=== PATIENT | male | born 1945 | race Caucasian/White ===

== ENCOUNTER 2017-05-27 05:29 | Inpatient (IN) ==
[2017-05-27] MEDS ORDERED: NOZIN NASAL SWAB NAS ONE ×2 (06:00→10:14)
[2017-05-27] MEDS ORDERED: CEFAZOLIN 1 G INJECTION IVP ONE (06:00)
[2017-05-27] MEDS ORDERED: FAMOTIDINE PB 20 MG/50 ML BAG IV ONE (06:00)
[2017-05-27] MEDS ORDERED: LIDOCAINE 1% (10mg/ml) 2mL INJ PF SDV ID ONE (06:00)
[2017-05-27] MEDS ORDERED: METOCLOPRAMIDE 10mg/2ml INJECTION IVP ONE (06:00)
[2017-05-27] MEDS ORDERED: ONDANSETRON 4 MG/2 ML INJECTION IVP ONE (06:00)
[2017-05-27] MEDS ORDERED: ACETAMINOPHEN 500 MG TABLET PO ONE (06:00)
[2017-05-27] MEDS ORDERED: MELOXICAM 15 MG TABLET PO ONE (06:00)
[2017-05-27] MEDS ORDERED: DEXAMETHASONE 4 MG/ML INJECTION IVP ONE (06:00)
[2017-05-27] MEDS: LR 1,000 ML IV SCH ×2 (06:12→07:55)
[2017-05-27] MEDS ORDERED: VANCOMYCIN 1,000 MG INJECTION ONE (06:27)
[2017-05-27] MEDS ORDERED: MIDAZOLAM 2mg/2ml INJECTION ONE (07:13)
[2017-05-27] MEDS ORDERED: PROPOFOL 500 MG/50 ML VIAL IV ONE (07:14)
--- NOTE | 2017-05-27 07:15 | History & Physical Update ---
- History and Physical Update Date: 05/27/17 Update: I evaluated this patient and found no changes in the history and clinical exam findings. The treatment plan and recommendations are also unchanged from the previous documentation.
[2017-05-27] MEDS ORDERED: KETOROLAC OPSITE ONE (08:00)
[2017-05-27] MEDS ORDERED: BUPIVACAINE 0.25% OPSITE ONE (08:00)
[2017-05-27] MEDS ORDERED: NS OPSITE ONE (08:00)
[2017-05-27] MEDS ORDERED: EPINEPHRINE OPSITE ONE (08:00)
[2017-05-27] MEDS ORDERED: EPHEDRINE 50mg/ml INJECTION ONE (08:08)
--- NOTE | 2017-05-27 08:37 | Anesthesia Preoperative Report ---
Anesthesia Preoperative Record - Date and Time Date: 05/27/17 Preoperative Diagnosis: Rt MARYSE (RA) M16.11 Proposed Procedure: right robotic total hip arthroplasty NPO Since Date: 05/26/17 NPO Since Time: 23:00 Allergies/Adverse Reactions: Allergies Allergy/AdvReac Type Severity Reaction Status Date / Time Sulfa (Sulfonamide Allergy Unknown RASH Verified 05/27/17 05:55 Antibiotics) morphine AdvReac Unknown SEVERE Verified 05/27/17 05:55 DROP BLOOD PRESSURE - Vital Signs Vital Signs: Temperature 98.5 F 05/27/17 05:42 Pulse Rate 62 05/27/17 06:01 Respiratory Rate 18 05/27/17 05:42 Blood Pressure 136/81 05/27/17 05:42 Pulse Oximetry 94 05/27/17 05:42 Oxygen Delivery Method Room Air Height and Weight: Height 5 ft 9 in Weight 86.8 kg Body Mass Index 28.2 - Medications Inpatient Medications: Current Medications Lactated Ringer's (Lactated Ringers) 1,000 mls @ 50 mls/hr IV .Q20H SHAHAB Last Admin: 05/27/17 06:12 Dose: 50 mls/hr Tranexamic Acid 1,000 mg/ (Sodium Chloride) 200 mls @ 200 mls/hr IV O ONE Stop: 05/27/17 09:13 Miscellaneous Medication (Tranexamic 1gm/Ns 100 Irr Mix) 100 ml IR O ONE Stop: 05/27/17 10:59 Last Admin: 05/27/17 07:53 Dose: 100 ml Sodium Chloride (Iv Flush) 10 - 80 ml IVF PRN PRN PRN Reason: [place] Home Medications: Home Medications Medication Instructions Recorded Confirmed Type aspirin 81 mg tablet,delayed 81 mg PO DAILY tab 04/21/17 05/27/17 History release Aleve (Naproxen) 220 mg capsule 440 mg PO QAM #0 cap 05/14/17 05/27/17 History Aleve PM (Naproxen 220 1 tab PO HS 05/14/17 05/27/17 History mg-diphenhydramine 25 mg tablet) fish oil-dha-epa 1,200 mg-144 1 cap PO Q2D #0 cap 05/14/17 05/27/17 History mg-216 mg capsule cqsjmrdx-tne-YM 200 mcg-vit K 15 1 tab PO DAILY tab 05/14/17 05/27/17 History mcg-lycope 150 ttg-npgijf-yhdj tablet jgiuuopy-ozf-kvfen acid 300 1 tab PO QAM tab 05/14/17 05/27/17 History mcg-lycopene 600 mcg-lutein 300 mcg tablet Acetaminophen [Tylenol] 1,000 mg PO Q4HPRN PRN 05/27/17 05/27/17 History Docusate Sodium [Colace] 100 mg PO PRN PRN 05/27/17 05/27/17 History Is Patient on Beta Hailey?: No - Medical History Respiratory: DENIES: Asthma, Chronic Obstructive Pulmonary Disease (COPD) Cardiovascular: DENIES: Angina, Coronary Artery Disease, Heart Murmur, Hypertension, Myocardial Infarction Gastrointestional: DENIES: Gastroesophageal Reflux Disease Renal/Endocrine: DENIES: Diabetes Mellitus Type 2 Other History: DENIES: Anesthesia Reactions - Surgical History HEENT Surgeries: Reports: Nose Surgery (rhinoplasty-2013) Musculoskeletal Surgery/Tx: Reports: Orthopedic Surgery (ORIF Rt arm), Total Knee Replacement (left and right) Anesthesia Reactions: None Hx Family Anesthesia Reaction: No History of Motion Sickness: No - Social History Smoking Status: Never smoker Hx Chewing Tobacco Use: No Second Hand Exposure: No Substance Use Type: does not use - Physical Exam Respiratory Exam: Present: lungs clear Cardiovascular Exam: Present: regular rate and rhythm - Airway Assessment Mallampati Score: II TMD: 3 Fingerbreadths Neck Extension: good Overall Assessment: no airway concerns - ASA ASA Score: 2 - Plan Anesthesia: General TIVA, Neuroaxial Regional/Trunk Block: Spinal - Discussion Discussion: Discussed risks/options/alternatives of anesthesia and questions answered. Patient consents. Nursing pain assessment noted. Present for Discussion: spouse Attestation Statement: Prior to the delivery of any anesthetic medication, I examined the patient, developed the plan, obtained the patient's consent and discussed the risk and benefits of the procedure with the patient/guardian. - Additional Information Seen by Anesthesia: Yes
[2017-05-27] MEDS ORDERED: ONDANSETRON 4 MG/2 ML INJECTION IVP PRN ×2 (08:40→10:14)
[2017-05-27] MEDS ORDERED: HYDROMORPHONE 2 MG/ML INJECTION IVP PRN (08:40)
[2017-05-27] MEDS ORDERED: VANCOMYCIN 1,000 MG INJECTION IAR ONE (09:01)
[2017-05-27] MEDS: TRANEXAMIC ACID 1,000 MG in NS 100 ML IV ONE ×2 (09:03→16:15)
[2017-05-27] MEDS ORDERED: PROPOFOL 20 ML ONE (09:06)
--- NOTE | 2017-05-27 09:10 | Operative Note ---
- Procedure Side: right Preoperative Diagnosis: hip primary DJD Postoperative Diagnosis: Same as preoperative diagnosis. Operation: total hip arthroplasty Surgeon: Jovon Wilcox MD Supervisor Safety Deposit: Renny Taylor Complications: None. Regional/Trunk Block: Spinal Estimated Blood Loss: See Anesthesia Record. Fluids: Please see Anesthesia Record. Description of Procedure: Mr. Daniels and his right hip were identified and marked in the preoperative holding area. He was brought back to the operating suite and spinal anesthetic was administered. He was then placed in a lateral decubitus position with his right hip up. The right lower extremity was prepped and draped in my normal sterile fashion. Timeout was performed. The [employer] robotic arm was used to assist with the surgery. A direct superior approach was utilized. An approximately 10 cm incision was made in the skin and dissection carried down to the muscle fascia which was then split in line with skin incision. A checkpoint was placed in the greater trochanter. The short external rotators were identified and tagged and detached. A capsulotomy was performed and the hip dislocated. A femoral neck osteotomy was performed at the pre-templated level measuring down from the femoral head. The head was removed and acetabulum exposed. Labrum was removed. A checkpoint was placed superior to the acetabulum. The acetabulum was then registered with the robot. The robotic arm was then used to ream with a 61 reamer. The robot then was again used to place a 62 Trident cup in 40 of tilt and 25 of anteversion. A liner was then placed. The proximal femur was exposed and prepared with a cookie cutter followed by reaming and broaching to a size 9. We trialed with a +2.5 head. After thorough irrigation a final Accolade 2 size 9 stem with 127 neck was placed. Leg length and offset were checked with the robot and were good in master pre-operative plan. A final +5 head was placed and the hip reduced. Betadine solution was used to irrigate throughout the case. It was followed by normal saline irrigation. Joint cocktail was injected throughout soft tissue. The capsulotomy was repaired with Ethibond. Short external rotators were also repaired with Ethibond. 1 g of vancomycin powder was placed into the wound. The muscle fascia was then repaired with #1 Vicryl. I then left my system to close the subcutaneous tissue with 2-0 Vicryl followed by running 4-0 Monocryl skin followed by Dermabond and a sterile dressing. The patient with any placed back into supine position and taken to recovery room in the care of anesthesia.
[2017-05-27] MEDS ORDERED: DiphenhydrAMINE 50 MG/ML INJECTION IVP PRN (10:14)
[2017-05-27] MEDS ORDERED: NAPROXEN 220 MG TABLET PO PRN (10:14)
[2017-05-27] MEDS ORDERED: LORazepam 1 MG TABLET PO PRN (10:14)
[2017-05-27] MEDS ORDERED: DiphenhydrAMINE 25 MG CAPSULE PO PRN (10:14)
[2017-05-27] MEDS: NS 1,000 ML IV SCH ×2 (10:16→23:25)
[2017-05-27 10:21] VITALS: BMI 28.6
[2017-05-27] MEDS: ACETAMINOPHEN 325 MG TABLET PO SCH ×4 (10:57→20:23)
[2017-05-27] MEDS ORDERED: SALINE FLUSH 10ml SYRINGE IVF PRN (10:58)
[2017-05-27] MEDS ORDERED: TRANEXAMIC ACID 1gm/NS 100ml IRR MIX IR ONE (10:58)
--- NOTE | 2017-05-27 11:01 | XRay Report ---
Indication: postoperative image PROCEDURE: XR pelvis w/ 1 view RT hip: Encounter: Initial Comparison: April 21, 2017 Findings: Postoperative changes of right total hip replacement are seen. There is expected postoperative subcutaneous gas. No evidence of hardware failure or acute fracture. No retained radiopaque surgical instruments or sponges seen. Severe osteoarthritis in the left hip is again noted with a gpxf-ku-cewy appearance. Impression: New right total hip prosthesis without evidence of immediate complication. .
[2017-05-27] MEDS: DOCUSATE SODIUM 100 MG CAPSULE PO SCH ×2 (11:04→20:23)
[2017-05-27] MEDS: POLYETHYL GLYCOL 3350 17gm PACKET PO SCH (11:05)
[2017-05-27] MEDS: ASPIRIN *EC* 325 MG TABLET PO SCH ×2 (12:15→20:23)
[2017-05-27] MEDS: NOZIN NASAL SWAB NAS SCH ×3 (14:46→21:51)
[2017-05-27] MEDS: CEFAZOLIN 2 G in NS 100 ML IV SCH (14:47)
[2017-05-27] MEDS ORDERED: SENNOSIDES 8.6 MG TABLET PO SCH (21:00)
[2017-05-28] MEDS: Oxycodone *IR* 5 MG TABLET PO PRN ×2 (02:31→09:58)
[2017-05-28] MEDS: CEFAZOLIN 2 G in NS 100 ML IV SCH (03:53)
[2017-05-28] MEDS: NOZIN NASAL SWAB NAS SCH ×2 (05:55→13:37)
[2017-05-28] MEDS ORDERED: SENNOSIDES 8.6 MG TABLET PO PRN (07:16)
[2017-05-28 08:15] VITALS: RESP 16
[2017-05-28] MEDS: POLYETHYL GLYCOL 3350 17gm PACKET PO SCH (08:48)
[2017-05-28] MEDS: DOCUSATE SODIUM 100 MG CAPSULE PO SCH (08:48)
[2017-05-28] MEDS: ASPIRIN *EC* 325 MG TABLET PO SCH (08:48)
[2017-05-28] MEDS: ACETAMINOPHEN 325 MG TABLET PO SCH ×2 (08:49→13:37)
--- NOTE | 2017-05-28 12:06 | Orthopedic Progress Note ---
Date: Doing well without concerns. Orthopedic Objective Vital signs: Temperature 97.2 F 05/28/17 08:00 Pulse Rate 62 05/28/17 08:00 Respiratory Rate 16 05/28/17 08:00 Blood Pressure 119/69 05/28/17 08:00 Pulse Oximetry 94 05/28/17 08:00 Oxygen Delivery Method Room Air Height and Weight: Height 5 ft 9 in Weight 87.9 kg Body Mass Index 28.6 - Constitutional General Appearance: Present: no acute distress - Respiratory Exam Present: non-labored - Cardiovascular Exam Present: pedal pulses intact Capillary Refill: < 2-3 Seconds - Abdominal Exam Present: soft - Extremities Exam Absent: calf tenderness - Neurological Exam Present: no deficits. Absent: intact to light touch - Psychiatric Exam Present: alert - Labs Result Diagrams: 05/28/17 04:19 05/28/17 04:19 Abnormal lab results 05/28/17 05/28/17 Range/Units 04:19 04:19 WBC 12.2 H (4.5-11.0) T/MM3 RBC 4.35 L (4.50-5.90) M/MM3 Hgb 13.2 L (13.5-17.5) GM/DL Hct 39.8 L (41-53) % Chloride 108 H (98-107) MEQ/L H & H 05/28/17 Range/Units 04:19 Hgb 13.2 L (13.5-17.5) GM/DL Hct 39.8 L (41-53) % Orthopedic Assessment and Plan (1) Primary osteoarthritis of right hip Status: Resolved Assessment and Plan: Doing well. Continue current treatment. Anticipate discharge today. Hospital Course Summary Disclaimer: The visit summary below is not to be considered part of the above Progress Note.
[2017-05-28 12:12] VITALS: BP 122/72; PULSE 64; TEMP 96.9; O2SAT 93
--- NOTE | 2017-05-28 12:54 | Discharge Instructions ---
Discharge Plan - Med Rec/Dispo Referrals/Follow Up: Rupesh Wilcox MD [Physician] - 06/18/17 1:15 pm Vikas Instructions: [facility] Postop Instructions Additional Instructions: ADVANCED THERAPY AT THE [facility] ON 05/30/2017 AT 1:45PM FOR PHYSICAL THERAPY EVAL. PHONE [phone] Prescriptions: New Aspirin *EC* [Ecotrin] 325 mg PO BID #84 tablet Acetaminophen [Tylenol] 650 mg PO QID #100 tablet Oxycodone *Ir* [Roxicodone *Ir*] 5 - 15 mg PO Q3H PRN #60 tablet PRN Reason: Breakthrough Pain Continue Docusate Sodium [Colace] 100 mg PO PRN PRN PRN Reason: Constipation /Stool Softening Aleve PM (Naproxen 220 mg-diphenhydramine 25 mg tablet) 1 tab PO HS fish oil-dha-epa 1,200 mg-144 mg-216 mg capsule 1 cap PO Q2D #0 cap tmlmeitx-zdq-llzzz acid 300 mcg-lycopene 600 mcg-lutein 300 mcg tablet 1 tab PO QAM tab Aleve (Naproxen) 220 mg capsule 440 mg PO QAM #0 cap gxxmslcz-ihe-VG 200 mcg-vit K 15 mcg-lycope 150 ibd-vnwmwj-pjkr tablet 1 tab PO DAILY tab Discontinued Acetaminophen [Tylenol] 1,000 mg PO Q4HPRN PRN PRN Reason: Pain aspirin 81 mg tablet,delayed release 81 mg PO DAILY tab - Disposition 01 Discharged Home, Self-Care
--- NOTE | 2017-05-28 12:58 | Discharge Summary ---
Orthopedic Discharge Info Date of admission: 05/27/17 05:29 Primary care physician: Ivan Chavez MD Attending Physician: Rupesh Wilcox MD Consults: 05/27/17 05:35 Consult to Anesthesiology [CONS] Routine Consulting Provider: IRSEAL Spears Reason For Exam: Preoperative Assessment 05/27/17 10:14 Case Management Consult [CONS] Routine Reason For Exam: Discharge Planning DME-Walker [CONS] Routine Height: 5 ft 9 in Weight: 191 lb 5.78 oz Comment: change dressing in 2 weeks Total Joint Outpatient Therapy [CONS] Routine Comment: change dressing in 2 weeks - Discharge Diagnosis (1) Primary osteoarthritis of right hip Status: Resolved - Procedures Procedures: Procedures Replacement of Right Hip Joint with Ceramic on Polyethylene Synthetic Substitute , Uncemented, Open Approach (05/27/17) Robotic Assisted Procedure of Lower Extremity, Open Approach (05/27/17) - Laboratory Result Diagrams: 05/28/17 04:19 05/28/17 04:19 Laboratory: Abnormal lab results 05/28/17 05/28/17 Range/Units 04:19 04:19 WBC 12.2 H (4.5-11.0) T/MM3 RBC 4.35 L (4.50-5.90) M/MM3 Hgb 13.2 L (13.5-17.5) GM/DL Hct 39.8 L (41-53) % Chloride 108 H (98-107) MEQ/L H & H 05/28/17 Range/Units 04:19 Hgb 13.2 L (13.5-17.5) GM/DL Hct 39.8 L (41-53) % Orthopedic Discharge HPI - HPI Comments This patient was admitted for elective surgical tx of end stage degenerative joint disease that failed to respond to conservative treatment. Further details of this is found in the admission H&P. Orthopedic Hospital Course Hospital course: 05/28/17 12:57 After appropriate preoperative clearance and signing of operative consent, the patient was given IV antibiotics, according to orthopedic protocol. The patient was taken to the operating room and underwent elective joint arthroplasty. Following surgery, antibiotics were discontinued less than 24 hours according to joint protocol. Appropriate anticoagulants were initiated and SCDs added for DVT prevention. The dressing was clean, dry, and intact. Pain control was obtained via multimodal approach. Bowel motivation addressed with scheduled and PRN medications. Early mobilization was initiated through PT services. Discharge arrangements made by a collaborative effort between the patient and Case Management. Follow-up is scheduled in 2-3 weeks. Discharge instructions given by orthopedic providers and nursing staff at discharge. Discharge condition was good. Ongoing care required?: No - Postoperative Anemia patient received IVF, labs monitored daily, HGB drop-acceptable Discharge Plan - Med Rec/Dispo Referrals/Follow Up: Rupesh Wilcox MD [Physician] - 06/18/17 1:15 pm Truven Instructions: [facility] Postop Instructions Additional Instructions: ADVANCED THERAPY AT THE [facility] ON 05/30/2017 AT 1:45PM FOR PHYSICAL THERAPY EVAL. PHONE [phone] Prescriptions: New Aspirin *EC* [Ecotrin] 325 mg PO BID #84 tablet Acetaminophen [Tylenol] 650 mg PO QID #100 tablet Oxycodone *Ir* [Roxicodone *Ir*] 5 - 15 mg PO Q3H PRN #60 tablet PRN Reason: Breakthrough Pain Continue Docusate Sodium [Colace] 100 mg PO PRN PRN PRN Reason: Constipation /Stool Softening Aleve PM (Naproxen 220 mg-diphenhydramine 25 mg tablet) 1 tab PO HS fish oil-dha-epa 1,200 mg-144 mg-216 mg capsule 1 cap PO Q2D #0 cap mwcdxtgg-flw-tvrvd acid 300 mcg-lycopene 600 mcg-lutein 300 mcg tablet 1 tab PO QAM tab Aleve (Naproxen) 220 mg capsule 440 mg PO QAM #0 cap joripqxl-nvz-FE 200 mcg-vit K 15 mcg-lycope 150 xlx-rzgjnk-gipz tablet 1 tab PO DAILY tab Discontinued Acetaminophen [Tylenol] 1,000 mg PO Q4HPRN PRN PRN Reason: Pain aspirin 81 mg tablet,delayed release 81 mg PO DAILY tab - Disposition 01 Discharged Home, Self-Care
[2017-05-29] MEDS ORDERED: BISACODYL 10 MG SUPPOSITORY RECTALLY SCH (20:00)
== END 2017-05-28 13:40 | disposition home or self-care (01) | DRG 470 ==
LOC: SRG 05:29
PROVIDERS: ADMIT Orthopaedic Surgery; ATTEND Orthopaedic Surgery

== ENCOUNTER 2017-09-09 05:26 | Inpatient (IN) ==
[2017-09-09 05:44] VITALS: BMI 28.0
[2017-09-09] MEDS ORDERED: TRANEXAMIC ACID 1,000 MG in NS 100 ML IV ONE ×2 (06:00→07:00)
[2017-09-09] MEDS ORDERED: ACETAMINOPHEN 500 MG TABLET PO ONE (06:00)
[2017-09-09] MEDS ORDERED: DEXAMETHASONE 4 MG/ML INJECTION IVP ONE (06:00)
[2017-09-09] MEDS ORDERED: METOCLOPRAMIDE 10mg/2ml INJECTION IVP ONE (06:00)
[2017-09-09] MEDS ORDERED: MELOXICAM 15 MG TABLET PO ONE (06:00)
[2017-09-09] MEDS ORDERED: FAMOTIDINE PB 20 MG/50 ML BAG IV ONE (06:00)
[2017-09-09] MEDS ORDERED: LIDOCAINE 1% (10mg/ml) 2mL INJ PF SDV ID ONE (06:00)
[2017-09-09] MEDS ORDERED: ONDANSETRON 4 MG/2 ML INJECTION IVP ONE (06:00)
[2017-09-09] MEDS ORDERED: NOZIN NASAL SWAB NAS ONE ×2 (06:00→10:49)
[2017-09-09] MEDS ORDERED: CEFAZOLIN 1 G INJECTION IVP ONE (06:08)
[2017-09-09] MEDS: LR 1,000 ML IV SCH ×2 (06:09→08:35)
[2017-09-09] MEDS ORDERED: PROPOFOL 500 MG/50 ML VIAL IV ONE ×3 (06:47→09:24)
[2017-09-09] MEDS ORDERED: VANCOMYCIN 1,000 MG INJECTION ONE (06:57)
--- NOTE | 2017-09-09 06:57 | Anesthesia Preoperative Report ---
Anesthesia Preoperative Record - Date and Time Date: 09/09/17 Preoperative Diagnosis: Lt MARYSE M16.12 Proposed Procedure: maryse NPO Since Date: 09/09/17 NPO Since Time: 05:00 Allergies/Adverse Reactions: Allergies Allergy/AdvReac Type Severity Reaction Status Date / Time Sulfa (Sulfonamide Allergy Unknown RASH Verified 09/09/17 05:52 Antibiotics) morphine AdvReac Unknown SEVERE Verified 09/09/17 05:52 DROP BLOOD PRESSURE - Vital Signs Vital Signs: Temperature 98.0 F 09/09/17 05:44 Pulse Rate 66 09/09/17 06:00 Respiratory Rate 16 09/09/17 05:44 Blood Pressure 119/68 09/09/17 05:44 Pulse Oximetry 95 09/09/17 05:44 Height and Weight: Height 1.78 m Weight 88.8 kg Body Mass Index 28.0 - Medications Inpatient Medications: Current Medications Epinephrine HCl 0.25 mg/Bupivacaine HCl 30 ml/Ketorolac Tromethamine 60 mg/ Sodium Chloride 62.25 mls @ 0 mls/hr OPSITE INTRAOP ONE; Per Protocol PRN Reason: Protocol Stop: 09/09/17 08:01 Tranexamic Acid 1,000 mg/ (Sodium Chloride) 110 mls @ 660 mls/hr IV INTRAOP ONE Stop: 09/09/17 07:09 Lactated Ringer's (Lactated Ringers) 1,000 mls @ 50 mls/hr IV .Q20H SHAHAB Last Admin: 09/09/17 06:09 Dose: 50 mls/hr Sodium Chloride (Iv Flush) 10 - 80 ml IV PRN PRN PRN Reason: [place] Home Medications: Home Medications Medication Instructions Recorded Confirmed Type zrzvjdmh-gur-HS 200 mcg-vit K 15 1 tab PO DAILY tab 05/14/17 09/09/17 History mcg-lycope 150 cnd-kpozvw-iriw tablet skfknwic-rai-glsxe acid 300 1 tab PO QAM tab 05/14/17 09/09/17 History mcg-lycopene 600 mcg-lutein 300 mcg tablet Acetaminophen [Tylenol] 500 mg PO Q5H PRN 08/20/17 09/09/17 History Aspirin [Aspirin EC] 81 mg PO DAILY 08/20/17 09/08/17 History Colace 100 mg PO BID 09/09/17 09/09/17 History Is Patient on Beta Hailey?: No - Medical History Respiratory: DENIES: Asthma, Chronic Obstructive Pulmonary Disease (COPD), Sleep Apnea Cardiovascular: DENIES: Angina, Coronary Artery Disease, Heart Murmur, Hypertension, Myocardial Infarction Gastrointestional: DENIES: Gastroesophageal Reflux Disease Neuro/Musculoskeletal: Reports: [email or web address] Renal/Endocrine: DENIES: Diabetes Mellitus Type 2 Other History: DENIES: Anesthesia Reactions - Surgical History HEENT Surgeries: Reports: Eye Surgery (laser surgery for glaucoma) Musculoskeletal Surgery/Tx: Reports: Orthopedic Surgery (ORIF Rt arm), Total Hip Replacement (Rt MARYSE ), Total Knee Replacement (left and right) Anesthesia Reactions: None Hx Family Anesthesia Reaction: No - Social History Smoking Status: Never smoker Hx Chewing Tobacco Use: No Second Hand Exposure: No Substance Use Type: does not use Alcohol Intake Frequency: holidays/special occasions only - Pertinent Findings EKG: Sinus Rhythm - Physical Exam Respiratory Exam: Present: lungs clear Cardiovascular Exam: Present: regular rate and rhythm, no murmur - Airway Assessment Mallampati Score: II TMD: 3 Fingerbreadths Neck Extension: good Teeth: chipped teeth/crowns Overall Assessment: no airway concerns - ASA ASA Score: 2 - Plan Anesthesia: General TIVA, Neuroaxial Regional/Trunk Block: Spinal - Discussion Discussion: Discussed risks/options/alternatives of anesthesia and questions answered. Patient consents. Nursing pain assessment noted. Present for Discussion: spouse Attestation Statement: Prior to the delivery of any anesthetic medication, I examined the patient, developed the plan, obtained the patient's consent and discussed the risk and benefits of the procedure with the patient/guardian. - Additional Information Seen by Anesthesia: Yes
[2017-09-09] MEDS ORDERED: MIDAZOLAM 2mg/2ml INJECTION ONE (07:05)
[2017-09-09] MEDS ORDERED: GLYCOPYRROLATE 0.4 MG/2 ML INJECTION ONE (07:15)
[2017-09-09] MEDS ORDERED: VANCOMYCIN 1,000 MG INJECTION IAR ONE (07:49)
[2017-09-09] MEDS ORDERED: EPINEPHrine PF 0.25 MG, BUPIVACAINE 0.25% PF 30 ML, KETOROLAC INJ 60 MG in NS 30 ML OPSITE ONE (08:00)
--- NOTE | 2017-09-09 09:51 | Operative Note ---
- Procedure Preoperative Diagnosis: Left hip primary degenerative joint disease Postoperative Diagnosis: Same as preoperative diagnosis. Surgeon: Jovon Wilcox MD Cook Syrup Maker: Renny Taylor Complications: None. Anesthesia: Spinal. Estimated Blood Loss: See Anesthesia Record. Fluids: Please see Anesthesia Record. Description of Procedure: Mr. Daniels and his left hip were identified and marked in the preoperative holding area. He was brought back to the operating suite and spinal anesthetic was administered. He was then placed in a lateral decubitus position with his left hip up. The left lower extremity was prepped and draped in my normal sterile fashion. Timeout was performed. The [employer] robotic arm was used to assist with the surgery. A pelvic array was placed into the iliac crest through three small incisions. A direct superior approach was utilized. An approximately 10 cm incision was made in the skin and dissection carried down to the muscle fascia which was then split in line with skin incision. A checkpoint was placed in the greater trochanter. The short external rotators were identified and tagged and detached. A capsulotomy was performed and the hip dislocated. A femoral neck osteotomy was performed at the pre-templated level measuring down from the femoral head. The head was removed and acetabulum exposed. Labrum was removed. The acetabulum was then registered with the robot. The robotic arm was then used to ream with a 63 reamer. The robot then was again used to place a 64 Trident cup in 40 of tilt and 25 of anteversion. The cup did not seat was easily removed. It appeared there was still some sclerotic bone anteriorly. For this reason I remained with a planer hand again with a 63 reamer. I then placed a 66 cup by hand and 20 of version. I placed 3 screws in the superior posterior quadrant and all 3 achieved good bite and measured 30, 30, 35 mm. A liner was then placed. The proximal femur was exposed and prepared with a Hyperpot cutter followed by reaming and broaching to a size 9. We trialed with a +2.5 head. He felt short at the knee. I took a single AP pelvis radiograph. After thorough irrigation a final Accolade 2 size 9 stem with 127 neck was placed. Leg length and offset were checked with a +5 head. This made until equal at the knees and was very stable throughout range of motion. He had a good shuck. According to the robot was 5 mm long. A final +5 36 mm ceramic head was placed and the hip reduced. Betadine solution was used to irrigate throughout the case. It was followed by normal saline irrigation. Joint cocktail was injected throughout soft tissue. The capsulotomy was repaired with Ethibond. Short external rotators were also repaired with Ethibond. 1 g of vancomycin powder was placed into the wound. The muscle fascia was then repaired with #1 Vicryl. I then left my dental ceramist assistant to close the subcutaneous tissue with 2-0 Vicryl followed by running 4-0 Monocryl skin followed by Dermabond and a sterile dressing. The patient with any placed back into supine position and taken to recovery room in the care of anesthesia.
--- NOTE | 2017-09-09 10:07 | XRay Report ---
Indication: IN OR PROCEDURE: XR pelvis 1-2V: Encounter: Initial Comparison: July 07, 2017 Findings: Image from intraoperative placement of a left total hip replacement shows an acetabular component in place with a femoral reaming device also noted. There are densities projecting laterally which appear external to the patient with expected subcutaneous gas. There is a bar device projecting over the central pelvis. Impression: Findings as above. .
[2017-09-09] MEDS ORDERED: NAPROXEN 220 MG TABLET PO PRN (10:49)
[2017-09-09] MEDS ORDERED: LORazepam 1 MG TABLET PO PRN (10:49)
[2017-09-09] MEDS ORDERED: ONDANSETRON 4 MG/2 ML INJECTION IVP PRN (10:49)
[2017-09-09] MEDS ORDERED: DiphenhydrAMINE 25 MG CAPSULE PO PRN (10:49)
[2017-09-09] MEDS ORDERED: DiphenhydrAMINE 50 MG/ML INJECTION IVP PRN (10:49)
[2017-09-09] MEDS: NS 1,000 ML IV SCH (10:51)
--- NOTE | 2017-09-09 10:54 | Anesthesia Postoperative Note ---
- Date and Time Date: 09/09/17 Time: 10:54 - Status Patient Participated in Evaluation: Patient Participated in Person Vital Signs: Temperature 97.0 F 09/09/17 10:03 Pulse Rate 53 L 09/09/17 10:10 Respiratory Rate 26 H 09/09/17 10:10 Blood Pressure 90/54 09/09/17 10:10 Pulse Oximetry 94 09/09/17 10:10 Respiratory Function: Airway Patent Cardiovascular Function: Regular Pulse EKG: Sinus Bradycardia Mental Status: Alert and Oriented Pain Intensity: 2 Hydration: Taking PO Fluids Complications During Recover: None Apparent - Follow-Up Instructions Instructions: Per Surgeon
[2017-09-09] MEDS: ACETAMINOPHEN 325 MG TABLET PO SCH ×4 (10:55→21:10)
--- NOTE | 2017-09-09 10:57 | XRay Report ---
Indication: postoperative image PROCEDURE: XR pelvis w/ 1 view LT hip: Encounter: Initial Comparison: July 07, 2017 Findings: Postoperative changes of left total hip replacement are seen. There is expected postoperative subcutaneous gas. No evidence of hardware failure or acute fracture. No retained radiopaque surgical instruments or sponges seen. Right total hip prosthesis is stable and intact. Impression: New left total hip prosthesis without evidence of immediate complication. .
[2017-09-09] MEDS: POLYETHYL GLYCOL 3350 17gm PACKET PO SCH (11:01)
[2017-09-09] MEDS: DOCUSATE SODIUM 100 MG CAPSULE PO SCH ×2 (11:06→21:10)
[2017-09-09] MEDS: Oxycodone *IR* 5 MG TABLET PO PRN ×4 (11:15→22:24)
[2017-09-09 11:54] VITALS: RESP 16
[2017-09-09] MEDS ORDERED: FALL RISK - PHARMACY CONSULT XX ONE (13:00)
[2017-09-09] MEDS ORDERED: SALINE FLUSH 10ml SYRINGE IV PRN (13:16)
[2017-09-09] MEDS: NOZIN NASAL SWAB NAS SCH ×2 (13:59→21:09)
[2017-09-09] MEDS: CEFAZOLIN 2 G in NS 100 ML IV SCH (15:30)
[2017-09-09] MEDS: DEXAMETHASONE 20 MG/5 ML INJECTION IVP SCH (15:30)
[2017-09-09] MEDS ORDERED: SENNOSIDES 8.6 MG TABLET PO SCH (21:00)
[2017-09-09] MEDS: ASPIRIN *EC* 81 MG TABLET PO SCH (21:10)
[2017-09-10] MEDS: NS 1,000 ML IV SCH (00:21)
[2017-09-10] MEDS: CEFAZOLIN 2 G in NS 100 ML IV SCH (00:24)
[2017-09-10] MEDS: DEXAMETHASONE 20 MG/5 ML INJECTION IVP SCH (00:29)
[2017-09-10 05:27] VITALS: TEMP 98.2
[2017-09-10] MEDS: NOZIN NASAL SWAB NAS SCH ×2 (05:27→13:18)
[2017-09-10] MEDS ORDERED: SENNOSIDES 8.6 MG TABLET PO PRN (06:32)
--- NOTE | 2017-09-10 07:52 | Orthopedic Progress Note ---
Date: Subjective/Severity of Illness: Mr Daniels is doing great. He wants to take only Tylenol because of the constipation effect of Oxycodone. He feels his leg length was corrected almost perfectly. Denies any CP, SOA or cough. No GI complaints. He has been mobile with good tolerance. Orthopedic Objective PO Vital signs: Temperature 98.2 F 09/10/17 04:00 Pulse Rate 69 09/10/17 04:00 Respiratory Rate 16 09/10/17 04:00 Blood Pressure 131/80 09/10/17 04:00 Pulse Oximetry 93 09/10/17 04:00 Height and Weight: Height 5 ft 10 in Weight 207 lb 0.225 oz Body Mass Index 28.0 - Constitutional General Appearance: Present: alert, cooperative, no acute distress - Respiratory Exam Present: non-labored - Extremities Exam Extremities: Present: pulses intact - Surgical Site Incision: Mepilex dressing intact, no drainage - Neurological Exam Present: no deficits - Psychiatric Exam Present: alert, normal affect - Labs Result Diagrams: 09/10/17 04:07 09/10/17 04:07 Abnormal lab results 09/10/17 Range/Units 04:07 Glucose 157 H (75-110) MG/DL H & H 09/10/17 Range/Units 04:07 Hgb 14.5 (13.5-17.5) GM/DL Hct 43.8 (41-53) % Orthopedic Assessment and Plan (1) Primary osteoarthritis of left hip Status: Acute Assessment and Plan: Aspirin protocol for VTE prophylaxis. SCD's. PT/OT services to improve independent function. Discharge Planning per Case Management. - Anticoagulation Therapy Anticoagulation: ASA 81 mg PO BID x6 weeks Hospital Course Summary Disclaimer: The visit summary below is not to be considered part of the above Progress Note.
[2017-09-10] MEDS: ASPIRIN *EC* 81 MG TABLET PO SCH (08:58)
[2017-09-10] MEDS: ACETAMINOPHEN 325 MG TABLET PO SCH ×2 (08:58→13:18)
[2017-09-10] MEDS: DOCUSATE SODIUM 100 MG CAPSULE PO SCH (08:58)
[2017-09-10] MEDS: POLYETHYL GLYCOL 3350 17gm PACKET PO SCH (08:59)
[2017-09-10] MEDS: Oxycodone *IR* 5 MG TABLET PO PRN (10:38)
[2017-09-10 12:43] VITALS: BP 126/70; PULSE 68; O2SAT 96
--- NOTE | 2017-09-10 14:27 | Discharge Summary ---
Orthopedic Discharge Info Date of admission: 09/09/17 05:26 Primary care physician: Ivan Chavez MD Attending Physician: Rupesh Wilcox MD Consults: 09/09/17 05:42 Consult to Anesthesiology [CONS] Routine Reason For Exam: Preoperative Assessment 09/09/17 10:49 Case Management Consult [CONS] Routine Reason For Exam: Discharge Planning DME-Walker [CONS] Routine Height: 5 ft 10 in Weight: 195 lb 12.328 oz Total Joint Outpatient Therapy [CONS] Routine Comment: Remove dressing in 2 weeks - Discharge Diagnosis (1) Primary osteoarthritis of left hip Status: Acute - Procedures Procedures: Procedures Left MARYSE - Laboratory Result Diagrams: 09/10/17 04:07 09/10/17 04:07 Laboratory: Abnormal lab results 09/10/17 Range/Units 04:07 Glucose 157 H (75-110) MG/DL H & H 09/10/17 Range/Units 04:07 Hgb 14.5 (13.5-17.5) GM/DL Hct 43.8 (41-53) % Orthopedic Discharge HPI - HPI Comments This patient was admitted for elective surgical tx of end stage degenerative joint disease that failed to respond to conservative treatment. Further details of this is found in the admission H&P. Orthopedic Hospital Course Hospital course: 09/10/17 14:25 After appropriate preoperative clearance and signing of operative consent, the patient was given IV antibiotics, according to orthopedic protocol. The patient was taken to the operating room and underwent elective joint arthroplasty. Following surgery, antibiotics were discontinued less than 24 hours according to joint protocol. Appropriate anticoagulants were initiated and SCDs added for DVT prevention. The dressing was clean, dry, and intact. Pain control was obtained via multimodal approach. Bowel motivation addressed with scheduled and PRN medications. Early mobilization was initiated through PT services. Discharge arrangements made by a collaborative effort between the patient and Case Management. Follow-up is scheduled in 2-3 weeks. Discharge instructions given by orthopedic providers and nursing staff at discharge. Discharge condition was good. Ongoing care required?: No Discharge Plan - Med Rec/Dispo Referrals/Follow Up: Renny Taylor PA [Physician Instructor Adjunct Pharmacy Technician] - 10/01/17 1:00 pm Vikas Instructions: [facility] Postop Instructions Additional Instructions: [facility] ON 09/11/2017 AT 8:00AM FOR PHYSICAL THERAPY EVAL AT THE [facility] LOCATION. PHONE [phone] Prescriptions: New Aspirin *EC* [Ecotrin] 81 mg PO BID tab PEG 3350 17gm PACKET [Miralax] 17 gm PO DAILY packet Acetaminophen [Tylenol] 650 mg PO QID tab Naproxen [Aleve] 440 mg PO BID PRN tab PRN Reason: Pain Continue Colace 100 mg PO BID ruchrwdg-qup-hbrkt acid 300 mcg-lycopene 600 mcg-lutein 300 mcg tablet 1 tab PO QAM tab jytlqkzo-hna-LS 200 mcg-vit K 15 mcg-lycope 150 glk-poyhut-ublh tablet 1 tab PO DAILY tab Discontinued Aspirin [Aspirin EC] 81 mg PO DAILY Acetaminophen [Tylenol] 500 mg PO Q5H PRN PRN Reason: Pain - Disposition 01 Discharged Home, Self-Care - Dismissal Complete Discharge Instructions are:: Complete
[2017-09-11] MEDS ORDERED: BISACODYL 10 MG SUPPOSITORY RECTALLY SCH (20:00)
== END 2017-09-10 14:44 | disposition home or self-care (01) | DRG 470 ==
LOC: SRG 05:26
PROVIDERS: ADMIT Orthopaedic Surgery; ATTEND Orthopaedic Surgery